=== PATIENT | female | born 1995 ===

== ENCOUNTER 2021-04-20 13:01 | Emergency (ER) | payer MEDICAID ==
[2021-04-20] MEDS ORDERED: EPINEPHrine/PF 1 MG/1 ML INJ ONE (15:00)
[2021-04-20] MEDS ORDERED: methylPREDNISolone Sod Succinate 125 MG/2 ML INJ ONE (15:05)
[2021-04-20] MEDS ORDERED: MAGNESIUM SULFATE 2 GM/50 ML BAG IV ONE (15:05)
[2021-04-20 16:29] LABS: Bilirubin,Urine NEG (Negative); Blood,Urine NEG (Negative); Color,Urine Yellow (Yellow); Mucus,Urine FEW /HPF; Protein,Urine <15 mg/dL mg/dL (Negative); Urobilinogen,Urine < 2.0 mg/dL (<2.0)
[2021-04-20 16:40] LABS: Basophils % (Auto) 0.3 % (0.0-1.8); Eosinophils # (Auto) 0.1 K/mm3 (0.0-0.4); Eosinophils % (Auto) 0.5 % (0.0-4.3); Hematocrit 43.4 % (30.3-42.9); Hemoglobin 14.2 gm/dl (10.1-14.3); Lymphocytes % (Auto) 25.8 % (13.4-35.0); Mean Corpuscular HGB Conc 33 % (30-34); Mean Corpuscular Volume 90 fl (79-97); Monocytes # (Auto) 0.6 K/mm3 (0.0-0.8); Monocytes % (Auto) 5.3 % (0.0-7.3); Platelet Count 294 K/mm3 (140-440); Red Blood Count 4.85 M/mm3 (3.65-5.03); Red Cell Distribution Width 13.3 % (13.2-15.2)
[2021-04-20 16:54] LABS: Alanine Aminotransferase 5 units/L (7-56); Albumin 4.7 g/dL (3.9-5); Blood Urea Nitrogen 6 mg/dL (7-17); Calcium 9.9 mg/dL (8.4-10.2); Hemolysis Index 15
[2021-04-20 17:01] LABS: BUN/Creatinine Ratio 20
[2021-04-20] MEDS ORDERED: ACETAMINOPHEN 500 MG TAB PO ONE (17:01)
[2021-04-20] MEDS ORDERED: METOCLOPRAMIDE 10 MG TAB PO ONE (17:01)
[2021-04-20] MEDS ORDERED: FAMOTIDINE 20 MG TAB PO ONE (17:01)
--- NOTE | 2021-04-20 17:29 | Emergency Department Report ---
ED Female HPI - General Chief complaint: Vaginal Bleeding Stated complaint: 7 WKS PREG VAG SPOTTING Source: patient Mode of arrival: Ambulatory Limitations: No Limitations - History of Present Illness Initial comments: Patient is a A0 25-year-old female who is approximately 8 weeks gestation and who presents to the ED with complaint of acute onset persistent pelvic pain with vaginal bleeding for the last 8 hours intermittently. Patient states that the initial bleeding was heavier but subsequently the bleeding has since improved to just vaginal spotting. Patient states that the pelvic pain has been intermittent and worse with movement. Patient also complains of intermittent nausea and vomiting for the last 1 week. Patient states that she has not been evaluated by any [facility] physician since she discovered that she was . Patient denies dysuria, urinary frequency and urgency, vaginal discharge, low back pain, diarrhea, dizziness, syncope, headache, fever, chills, cough, chest pain or shortness of breath. MD Complaint: vaginal bleeding, pelvic pain -: Sudden, hour(s) (8) Location: suprapubic Radiation: non-radiating Severity: moderate Severity scale (0 -10): 6 Quality: cramping, sharp Consistency: constant Improves with: none Worsens with: movement Are you Now?: Yes (Approximately 8 weeks gestation) Associated Symptoms: denies other symptoms, vaginal bleeding, abdominal pain (Suprapubic pain), nausea/vomiting. denies: vaginal discharge, fever/chills, headaches, loss of appetite, dysuria, hematuria, rash, seizure, shortness of breath, syncope, weakness, other - Related Data Sexually active: Yes : 1 Para: 0 A: 0 Previous Rx's Medication Instructions Recorded Last Taken Type Acetaminophen [Tylenol] 500 mg PO Q6HR PRN #30 tablet 04/20/21 Unknown Rx Promethazine [Phenergan] 25 mg PO Q6HR PRN #30 tab 04/20/21 Unknown Rx Allergies Allergy/AdvReac Type Severity Reaction Status Date / Time No Known Allergies Allergy Unverified 04/20/21 17:21 ED Review of Systems ROS: Stated complaint: 7 WKS PREG VAG SPOTTING Other details as noted in HPI Constitutional: denies: chills, fever Eyes: denies: eye pain, eye discharge, vision change ENT: denies: ear pain, throat pain Respiratory: denies: cough, shortness of breath, wheezing Cardiovascular: denies: chest pain, palpitations Endocrine: no symptoms reported Gastrointestinal: abdominal pain (Suprapubic pain), nausea, vomiting. denies: diarrhea Genitourinary: abnormal menses (Vaginal bleeding). denies: urgency, dysuria, frequency, discharge, dyspareunia Musculoskeletal: denies: back pain, joint swelling, arthralgia, myalgia Skin: denies: rash, lesions Neurological: denies: headache, weakness, paresthesias Psychiatric: denies: anxiety, depression Hematological/Lymphatic: denies: easy bleeding, easy bruising ED Past Medical Hx - Social History Smoking Status: Never Smoker Substance Use Type: None - Medications Home Medications: Home Medications Medication Instructions Recorded Confirmed Last Taken Type Acetaminophen [Tylenol] 500 mg PO Q6HR PRN #30 tablet 04/20/21 Unknown Rx Promethazine [Phenergan] 25 mg PO Q6HR PRN #30 tab 04/20/21 Unknown Rx ED Physical Exam - General Limitations: No Limitations General appearance: alert, in no apparent distress - Head Head exam: Present: atraumatic, normocephalic, normal inspection - Eye Eye exam: Present: normal appearance, PERRL, EOMI Pupils: Present: normal accommodation - ENT ENT exam: Present: normal exam, normal orophraynx, mucous membranes moist, TM's normal bilaterally, normal external ear exam - Neck Neck exam: Present: normal inspection, full ROM - Respiratory Respiratory exam: Present: normal lung sounds bilaterally. Absent: respiratory distress, wheezes, rales, rhonchi, chest wall tenderness, accessory muscle use, decreased breath sounds, other - Cardiovascular Cardiovascular Exam: Present: regular rate, normal rhythm, normal heart sounds. Absent: systolic murmur, diastolic murmur, rubs, gallop - GI/Abdominal GI/Abdominal exam: Present: soft, tenderness (Palpable reproducible mild suprapubic tenderness diffusely), normal bowel sounds. Absent: guarding, rebound, hyperactive bowel sounds, hypoactive bowel sounds, organomegaly - Bi-manual exam: Present: other (Pelvic exam deferred at this time) - Extremities Exam Extremities exam: Present: normal inspection, full ROM, normal capillary refill - Back Exam Back exam: Present: normal inspection, full ROM. Absent: tenderness, CVA tenderness (R), CVA tenderness (L), muscle spasm, vertebral tenderness - Neurological Exam Neurological exam: Present: alert, oriented X3, CN II-XII intact, normal gait, reflexes normal - Psychiatric Psychiatric exam: Present: normal affect, normal mood - Skin Skin exam: Present: warm, dry, intact, normal color. Absent: rash ED Course Vital Signs 04/20/21 04/20/21 15:26 18:13 Temperature 98.8 F Pulse Rate 63 Respiratory 18 16 Rate Blood Pressure 142/77 O2 Sat by Pulse 100 Oximetry ED Medical Decision Making - Lab Data Result diagrams: 04/20/21 16:15 04/20/21 16:15 - Radiology Data Radiology results: report reviewed, image reviewed [facility] [address] [place] [address] Ultrasound Report Signed Patient: LUCAS CHUA MR#: [id number] : 1995 Acct:[id number] Age/Sex: 25 / F ADM Date: 04/20/21 Loc: ED Attending Dr: Ordering Physician: CORDELIA SQUIRES Date of Service: 04/20/21 Procedure(s): US OB transvaginal Accession Number(s): [id number] cc: CORDELIA SQUIRES ULTRASOUND OBSTETRIC INDICATION: vaginal bleeding, 8 weeks . TECHNIQUE: Transvaginal. COMPARISON: None available. FINDINGS: GESTATIONAL SAC: Well-defined oval shape and intrauterine in location. YOLK SAC: No significant abnormality. EMBRYO/FETUS: No significant abnormality. - [place]-Rump Length = 0.7 cm = 6 weeks, 4 day(s). - Heart Rate = 115 beats per minute. ADNEXA: A probable left ovarian corpus luteum cyst measures up to 5 cm. No other significant abnormality. FREE FLUID: None. ADDITIONAL FINDINGS: There is a small area of probable subchorionic hemorrhage seen along the uterine body measuring up to 1 cm. IMPRESSION: 1. Single, living intrauterine with estimated sonographic age of 6 weeks, 4 day(s). 2. Small area of probable subchorionic hemorrhage as above. Signer Name: Fito Prince MD Signed: 04/20/2021 6:26 PM Workstation Name: [id number] Transcribed By: YARELY Dictated By: Fito Prince MD Electronically Authenticated By: Fito Prince MD Signed Date/Time: 04/20/211825 DD/ 23 TD/TT: - Medical Decision Making This is a A0 25-year-old female who is approximately 8 weeks gestation and who presents to the ED with complaint of acute onset persistent pelvic pain with vaginal bleeding for the last 8 hours intermittently. Patient states that the initial bleeding was heavier but subsequently the bleeding has since improved to just vaginal spotting. Patient states that the pelvic pain has been intermittent and worse with movement. Patient also complains of intermittent nausea and vomiting for the last 1 week. Patient states that she has not been evaluated by any [facility] physician since she discovered that she was . In the ED, patient is alert and oriented x3 and is not in any distress. Patient is hemodynamically stable. Lab test results were reviewed and showed acute leukocytosis of 11,600, hCG quant of 42,849 and urinalysis is unremarkable. The patient states rhesus positive. Transvaginal ultrasound s howed a single living IUP with estimated sonographic age of 6 weeks and 4 days and a small area of probable subchorionic hemorrhage seen along the uterine body measuring up to 1 cm. Patient was treated for pain with Tylenol in the ED, and was treated with antacids and antiemetics. On reevaluation, patient's pain is well controlled medications. Patient was discharged home and advised to maintain a complete pelvic rest, with no heavy lifting or strenuous physical and sexual activities. Patient was advised to follow-up with her [facility] physician in 5 to 7 days for reevaluation. Patient is advised return to the ED immediately if symptoms get worse. - Differential Diagnosis Threatened miscarriage; Ovarian cyst; subchorionic bleed; UTI Critical care attestation.: If time is entered above; I have spent that time in minutes in the direct care of this critically ill patient, excluding procedure time. ED Disposition Clinical Impression: Threatened miscarriage, Vaginal bleeding in patient after first trimester, Abdominal pain during in first trimester Disposition: DC-01 TO HOME OR SELFCARE Is pt being admited?: No Does the pt Need Aspirin: No Condition: Stable Instructions: Abdominal Pain During , [id number], Threatened Miscarriage, [id number], Vaginal Bleeding During , First Trimester, [id number] Additional Instructions: All lab test results were reviewed and are all nonactionable. Transvaginal ultrasound showed a single live intrauterine of approximately 6 weeks and 4 days with a small subchorionic bleed. Therefore take pain medication as needed with food, drink plenty of fluids, maintain a complete pelvic rest with no physical or strenuous activity including sexual intercourse. Follow-up with your [facility] [employer] physician in 5 to 7 days for reevaluation. Return to the ED imm ediately if symptoms get worse. Prescriptions: Acetaminophen [Tylenol] 500 mg PO Q6HR PRN #30 tablet PRN Reason: Pain , Severe (7-10) Promethazine [Phenergan] 25 mg PO Q6HR PRN #30 tab PRN Reason: Nausea Referrals: ANTONIA KIM MD [Staff Physician] - 3-5 Days Time of Disposition: 17:31 Print Language: LITHUANIAN
--- NOTE | 2021-04-20 18:31 | Ultrasound Report ---
ULTRASOUND OBSTETRIC INDICATION: vaginal bleeding, 8 weeks . TECHNIQUE: Transvaginal. COMPARISON: None available. FINDINGS: GESTATIONAL SAC: Well-defined oval shape and intrauterine in location. YOLK SAC: No significant abnormality. EMBRYO/FETUS: No significant abnormality. - [place]-Rump Length = 0.7 cm = 6 weeks, 4 day(s). - Heart Rate = 115 beats per minute. ADNEXA: A probable left ovarian corpus luteum cyst measures up to 5 cm. No other significant abnormal ity. FREE FLUID: None. ADDITIONAL FINDINGS: There is a small area of probable subchorionic hemorrhage seen along the uterine body measuring up to 1 cm. IMPRESSION: 1. Single, living intrauterine with estimated sonographic age of 6 weeks, 4 day(s). 2. Small area of probable subchorionic hemorrhage as above. Signer Name: Fito Prince MD Signed: 04/20/2021 6:26 PM Workstation Name: [id number]
--- NOTE | 2021-04-20 18:31 | Ultrasound Report ---
ULTRASOUND OBSTETRIC INDICATION: vaginal bleeding, 8 weeks . TECHNIQUE: Transvaginal. COMPARISON: None available. FINDINGS: GESTATIONAL SAC: Well-defined oval shape and intrauterine in location. YOLK SAC: No significant abnormality. EMBRYO/FETUS: No significant abnormality. - [place]-Rump Length = 0.7 cm = 6 weeks, 4 day(s). - Heart Rate = 115 beats per minute. ADNEXA: A probable left ovarian corpus luteum cyst measures up to 5 cm. No other significant abnormal ity. FREE FLUID: None. ADDITIONAL FINDINGS: There is a small area of probable subchorionic hemorrhage seen along the uterine body measuring up to 1 cm. IMPRESSION: 1. Single, living intrauterine with estimated sonographic age of 6 weeks, 4 day(s). 2. Small area of probable subchorionic hemorrhage as above. Signer Name: Fito Prince MD Signed: 04/20/2021 6:26 PM Workstation Name: [id number]
[2021-04-20 19:11] VITALS: BP 134/88
== END 2021-04-20 19:11 | disposition home or self-care (01) ==
LOC: ED 13:01
DX: O20.0 Threatened abortion (principal); O26.891 Other specified pregnancy related conditions, first trimester; R10.2 Pelvic and perineal pain; Z3A.08 8 weeks gestation of pregnancy; Z79.899 Other long term (current) drug therapy
CPT/HCPCS: 36415; 76801; 76817; 80053; 81001; 84702; 85025; 86900; 86901; 99284; J0171; J2930; J3475